=== PATIENT | male | born 1955 | race Caucasian/White ===

== ENCOUNTER 2024-06-09 00:34 | Emergency (ER) | payer OTHER, SELFPAY ==
[2024-06-09 00:37] VITALS: BP 130/62
[2024-06-09 03:03] VITALS: BP 119/73
--- NOTE | 2024-06-09 03:28 | ED.SKININJ ---
HPI-Injury
General
Chief Complaint: Bite
Source: patient
Exam Limitations: none
Time Seen by Provider: 06/09/24 03:05
Nursing documentation reviewed up to this point in time: agreed with
History of Present Illness-Injury
Is this injury a work related problem?: No
Is pt an associate of [facility]/[place]?: No
Initial Injury comments:
69-year-old female had a bat in her room, does not think it better, similar episode a few years ago received full rabies series and immunoglobulin she read online that she needs to have a booster
Past History
Past History
ED Past Medical History: None
Phy Exam
Physical Exam
Physical Exam:
Physical Exam
General: no apparent distress, not acutely ill
Neck: No jaundice
Lungs: no acute respiratory distress.
Neuro: alert and oriented. no focal neurological deficits
Skin: no rash
Psychiatric: well kept. interactive and cooperative
Extremities: no edema.
Course
Orders/Labs/Results
Orders:
Orders
06/09/24 04:00
Rabies Vaccine ([facility])/Pf [Rabavert Rabies Vacc W-Diluent] 2.5 unit IM .ONCE ONE
Vital Signs
Initial and Last Documented VS:
Initial Vital Signs
Temp Pulse Resp BP Pulse Ox
97.8 F 72 18 130/62 98
06/09/24 00:37 06/09/24 00:37 06/09/24 00:37 06/09/24 00:37 06/09/24 00:37
Last Documented Vital Signs
Temp Pulse Resp BP Pulse Ox
97.8 F 70 18 119/73 100
06/09/24 00:37 06/09/24 03:03 06/09/24 00:37 06/09/24 03:03 06/09/24 03:03
MDM/Problems Addressed
Differential Diagnosis Includes:
Bat exposure no bite procedure full series in the past 5 years will need to do some research to see if she needs a booster
*Critical Care Note
Total Time (30-74mins, 75-104mins- exclusive of procedures): Not Applicable
Update Note
Update Note:
RN reviewed with pharmacy patient will not require full series but 2 boosters
ED Attending Note
-
Portions of this chart may have been created with voice recognition software.� Occasional wrong word or��sound alike� substitutions may have occurred due to the inherent limitations of voice recognition software.
Discharge Plan
Departure
Patient Disposition: Home (Routine Discharge)
Date of Disposition: 06/09/24
Time of Disposition: 04:01
Patient with high blood pressure during this ER visit?: No
Condition: Good
Covid-19: Not Applicable
Discharge Problem:
Rabies vaccine
Instructions: Rabies
Prescriptions:
New
RabAvert (PF) 2.5 unit suspension for reconstitution
2.5 unit IM ONCE Qty: 1 0RF
No Action
RabAvert (PF) 2.5 unit Suspension For Reconstitution
1 ml IM . DIRECTED Qty: 3 0RF
Rx Instructions:
See Rabies Vaccine Post Exposure Prophylaxis Instruction Sheet for Dosing Instructions
estradiol 0.01 % (0.1 mg/gram) Cream
1 applic DAILY
Referrals:
Demian Roper MD [Family Provider] - Follow up in 10 days
Stand Alone Forms: Rabies Vaccine Post Exp Dosing
Interventions
Interventions:
*Risk Screen - Suicide Last Done: 06/09/24 00:37
*Neglect/Abuse Screening Last Done: 06/09/24 00:37
ED-Skin Assessment Last Done: 06/09/24 02:49
Discharge Date and Time
Print Language: HEBREW
[2024-06-09 05:18] VITALS: BP 108/68
[2024-06-09] MEDS: RABAVERT RABIES VACC W-DILUENT 2.5 UNIT IM (05:45)
[2024-06-09 06:02] VITALS: BP 106/68
== END 2024-06-09 06:19 | disposition home or self-care (01) ==
LOC: EMR 00:34
PROVIDERS: EMERGENCY PHYSICIAN Emergency Medicine; FAMILY PHYSICIAN Internal Medicine
DX: Z20.3 Contact with and (suspected) exposure to rabies (principal); Z23 Encounter for immunization
CPT/HCPCS: 99281; 90471; 90675

== ENCOUNTER 2024-06-12 13:41 | Outpatient (RCR) | payer OTHER, SELFPAY ==
[2024-06-12 13:55] VITALS: BP 130/73
[2024-06-12] MEDS: RABAVERT RABIES VACC W-DILUENT 2.5 UNIT IM (14:08)
== END 2024-06-13 23:59 | disposition home or self-care (01) ==
LOC: OID 13:41
DX: Z23 Encounter for immunization (principal); Z20.3 Contact with and (suspected) exposure to rabies
CPT/HCPCS: 90471; 90675

== ENCOUNTER → 2024-06-23 06:24 | Day surgery (SDC) | payer OTHER, SELFPAY | LOC: GI 06:24 | PROVIDERS: ATTENDING PHYSICIAN Internal Medicine Gastroenterology; FAMILY PHYSICIAN Internal Medicine | DX: Z12.11 Encounter for screening for malignant neoplasm of colon (principal); Q43.8 Other specified congenital malformations of intestine; D12.4 Benign neoplasm of descending colon; D12.0 Benign neoplasm of cecum; D12.2 Benign neoplasm of ascending colon; D12.3 Benign neoplasm of transverse colon | CPT/HCPCS: 45385; 88305 ==

== ENCOUNTER → 2024-11-10 12:01 | Outpatient (REF) | payer OTHER, SELFPAY | LOC: MRI 3T 12:01 | PROVIDERS: ATTENDING PHYSICIAN Physician Assistant Surgical; FAMILY PHYSICIAN Internal Medicine | DX: M54.50 Low back pain, unspecified (principal); M54.16 Radiculopathy, lumbar region | CPT/HCPCS: 72148 ==

== ENCOUNTER → 2025-02-04 14:03 | Outpatient (REF) | payer OTHER, SELFPAY | LOC: PAVMRI 14:03 | PROVIDERS: ATTENDING PHYSICIAN Physical Medicine & Rehabilitation; FAMILY PHYSICIAN Internal Medicine | DX: S46.911A Strain of unspecified muscle, fascia and tendon at shoulder and upper arm level, right arm, initial encounter (principal) | CPT/HCPCS: 73221; 73721 ==

== ENCOUNTER → 2025-04-14 13:47 | Outpatient (REF) | payer OTHER, SELFPAY ==
[2025-04-14 15:02] LABS: Blood Urea Nitrogen 17 mg/dl (7-17); Calcium 9.9 mg/dl (8.4-10.2); Carbon Dioxide 29 mmol/L (22-30); Chloride 107 mmol/L (98-107); Glucose 87 mg/dl (70-99); Potassium 4.5 mmol/L (3.5-5.1); Sodium 140 mmol/L (135-145); eGFR > 60.00
[2025-04-14 15:03] LABS: Hematocrit 35.8 % (37.0-47.0); Hemoglobin 12.2 g/dL (12.0-16.0); Mean Corp Hgb Conc. 34.1 g/dL (33.0-37.0); Mean Corpuscular Volume 92.5 fL (81.0-99.0); Nucleated Red Blood Cells % 0 %; Platelet Count 168 10^3/uL (130-400); Red Cell Dist. Width 13.2 % (11.5-14.5)
== END ==
LOC: REG 13:47
PROVIDERS: ATTENDING PHYSICIAN Orthopaedic Surgery Hand Surgery; FAMILY PHYSICIAN Internal Medicine
DX: Z01.818 Encounter for other preprocedural examination (principal)
CPT/HCPCS: 36415; 80048; 85025; 93005

== ENCOUNTER → 2025-08-17 12:23 | Outpatient (REF) | payer OTHER, SELFPAY | LOC: MRI 3T 12:23 | PROVIDERS: ATTENDING PHYSICIAN Orthopaedic Surgery Hand Surgery; FAMILY PHYSICIAN Internal Medicine | DX: M25.512 Pain in left shoulder (principal) | CPT/HCPCS: 73221 ==